=== PATIENT | male | born 1965 | race Caucasian/White ===

== ENCOUNTER 2023-12-28 06:16 | Observation (INO) ==
--- NOTE | 2023-12-01 12:05 | PAT Medication Instructions ---
Medication Instructions Date of Service December 01, 2023 Home Medications amlodipine 5 mg tablet (Norvasc) 5 mg PO HS losartan 50 mg tablet 50 mg PO HS rivaroxaban 20 mg tablet (Xarelto) 20 mg PO HS ergocalciferol (vitamin D2) 1,250 mcg (50,000 unit) capsule (Vitamin D2) 1,250 mcg PO UD omeprazole 20 mg capsule,delayed release 20 mg PO DAILY PRN Heartburn rosuvastatin 10 mg tablet 10 mg PO HS valacyclovir 1 gram tablet (Valtrex) 1,000 mg PO DAILY PRN Cold Sores ASK your prescriber and surgeon rivaroxaban 20 mg tablet (Xarelto) 20 mg PO HS (From anesthesia perspective, Xarelto/rivaroxaban needs to be stopped 72 hours before surgery. Please check if okay with doctor that prescribes this to you) DO NOT take the morning of surgery ergocalciferol (vitamin D2) 1,250 mcg (50,000 unit) capsule (Vitamin D2) 1,250 mcg PO UD Take morning of surgery With a small sip of water, OTHERWISE NOTHING TO EAT OR DRINK AFTER MIDNIGHT: omeprazole 20 mg capsule,delayed release 20 mg PO DAILY PRN Heartburn (if needed) valacyclovir 1 gram tablet (Valtrex) 1,000 mg PO DAILY PRN Cold Sores (if needed) Take evening before surgery amlodipine 5 mg tablet (Norvasc) 5 mg PO HS losartan 50 mg tablet 50 mg PO HS omeprazole 20 mg capsule,delayed release 20 mg PO DAILY PRN Heartburn (if needed) rosuvastatin 10 mg tablet 10 mg PO HS valacyclovir 1 gram tablet (Valtrex) 1,000 mg PO DAILY PRN Cold Sores (if needed) Other Notes If you have any questions please call us at [phone] or [phone] or [phone] or [phone]
--- NOTE | 2023-12-06 10:29 | Anesthesiology Consultation ---
Date of Service December 06, 2023 Assessment & Plan (1) Encounter for pre-operative examination: Plan - Outpatient joint assessment: Patient is currently scheduled for inpatient pathway. If re-evaluated and patient/surgeon requests outpatient pathway, patient is/is not acceptable candidate for outpatient joint program from anesthesia standpoint pending surgeon's office assessment of pt motivation/support/completion of same day joint program preop requirements. Chart Review Chart Review: Patient seen in Pre Admission Testing Teaching & Discussion Pre-Anesthesia Teaching/Discussion Notes: Instructed NPO after midnight before surgery, except medications with 15 cc of water. Medication instructions provided according to the PAT guidelines. History Surgery Operation Date: 12/28/23 11:45 Proposed Procedures p Right Total Knee Arthroplasty with Hardware Removal - Rupesh Worthy MD Height/Weight Height: 5 ft 11 in Weight: 108.862 kg Allergies Allergy/AdvReac Type Severity Reaction Status Date / Time No Known Allergies Allergy Verified 11/28/23 08:02 Medications Home Medications Medication Instructions Recorded Confirmed Last Taken amlodipine 5 mg tablet (Norvasc) 5 mg PO HS 04/23/20 11/28/23 07/06/22 losartan 50 mg tablet 50 mg PO HS 04/23/20 11/28/23 07/06/22 rivaroxaban 20 mg tablet (Xarelto) 20 mg PO HS 04/23/20 11/28/23 07/06/22 ergocalciferol (vitamin D2) 1,250 1,250 mcg PO UD 06/25/22 11/28/23 07/06/22 mcg (50,000 unit) capsule (Vitamin D2) omeprazole 20 mg capsule,delayed 20 mg PO DAILY PRN Heartburn 11/28/23 11/28/23 Unknown release rosuvastatin 10 mg tablet 10 mg PO HS 11/28/23 11/28/23 Unknown valacyclovir 1 gram tablet 1,000 mg PO DAILY PRN Cold Sores 11/28/23 11/28/23 Unknown (Valtrex) Past Medical History Medical History (Updated 12/06/23 @ 10:28 by Yulisa Iyer PA-C) Atrial fibrillation follows with Dr Willie Granados ([place], [place]) GERD (gastroesophageal reflux disease) History of COVID-19 09/2021>SYMPTOMS RESOLVED History of COVID-19 ~2021: vertigo for about 10 days. no current issues HTN (hypertension) Hx-TIA (transient ischemic attack) 10+ YEARS AGO Sleep apnea CPAP Patient denies h/o seizures, heart attack, heart failure, DM, blood clots/DVTs or blood transfusions. Past Family History Family History Other Colorectal cancer No family history of adverse response to anesthesia Past Surgical History Surgical History History of colonoscopy History of esophagogastroduodenoscopy (EGD) Hx of Achilles tendon repair LEFT Hx of cholecystectomy Hx of reconstruction of anterior cruciate ligament tear RT Hx of shoulder surgery RT S/P trigger finger release right trigger thumb [place] teeth removed Social History Smoking Status: Never smoker tobacco type: smokeless tobacco Do You Dip or Chew Tobacco: Yes (1 can/2 week (advised)) Hx Alcohol Use: Yes Alcohol type: beer and hard liquor alcohol intake frequency: a few times a week Hx Substance Use: No substance use type: does not use Review of Systems Patient denies chest pain, shortness of breath, dyspnea on exertion, fever, chills, cough, wheezing, or palpitations. Physical Exam Vital Signs Vitals BP P TEMP SP02 % on RA RESP Physical Patient resting comfortably in chair in no acute distress, alert and oriented, responding appropriately throughout visit Full cervical extension range of motion without pain TMD __ finger breadths Mallampati Score ___ Dentition: intact, denies chipped or loose teeth, caps/crowns, implants or bridges Lungs: normal respiratory effort. Good air movement, clear throughout to auscultation, no adventitious breath sounds Cardiac: regular rate and rhythm, no murmurs noted Carotid arteries: negative bruit bilat
--- NOTE | 2023-12-06 11:15 | Anesthesiology Consultation ---
Date of Service December 06, 2023 Assessment & Plan (1) Encounter for pre-operative examination: Chart Review Chart Review: Acceptable Risk for Surgery (pending cardio response regarding optimization for surgery ) and Patient seen in Pre Admission Testing - Please send optimization note to cardio regarding if patient is acceptable cardiac risk for procedure (Dr. Willie Valdes- [facility]) (please also send preop testing per patient request for continuity of care) - Please send preop testing to PCP (Dr. Ulises Villareal ([place], [place]) per patient request for continuity of care -Patient is NOT an ideal OPJ candidate (currently 23 hour obs) Per PAT appt on 12/06/23, no recent illness/disease exposures, illness related symptoms, or recent illness/disease positive tests. Will leave to surgeon's discretion if preop Covid testing needed Patient seen by cardiology 11/10/2023 = seen for cardiology evaluation. Patient has rare episodic palpitations which are nonexertional and nonsustained. CAD per calcium scoring CT scan of the chest. Patient would like to discontinue aspirin due to increased bruising. Will continue anticoagulation for A-fib. Due to CAD and carotid vascular diseaserecommend LDL lower than 70. Brief nonexertional sustained episodes of palpitations most likely from PACs and PVCs. Nonvalvular atrial fibrillationepisodic palpitations. [id number] score is 4. On Xarelto. Uncontrolled dyslipidemiapatient does not tolerate statin medicationswill try exercise and diet. Mild to moderate 50% bilateral ICA stenosis. Known valvular diseasepatient with recent echo. Controlled hypertension. Occasional class IV atypical angina described as squeezing pressure in substernal region. Sleep apnea with CPAP treatment. Echo and stress test from October 2023 reviewed. Right trigger finger release 07/07/2022 = done under [facility] Teaching & Discussion Pre-Anesthesia Teaching/Discussion Notes: Instructed NPO after midnight before surgery,except medications with 15 cc of water. Medication instructions provide d according to the PAT guidelines. History Surgery Operation Date: 12/28/23 11:45 Proposed Procedures p Right Total Knee Arthroplasty with Hardware Removal - Rupesh Worthy MD Height/Weight Height: 5 ft 11 in Weight: 108.8 kg Allergies Allergy/AdvReac Type Severity Reaction Status Date / Time No Known Allergies Allergy Verified 11/28/23 08:02 Medications Home Medications Medication Instructions Recorded Confirmed Last Taken amlodipine 5 mg tablet (Norvasc) 5 mg PO HS 04/23/20 11/28/23 07/06/22 losartan 50 mg tablet 50 mg PO HS 04/23/20 11/28/23 07/06/22 rivaroxaban 20 mg tablet (Xarelto) 20 mg PO HS 04/23/20 11/28/23 07/06/22 ergocalciferol (vitamin D2) 1,250 1,250 mcg PO UD 06/25/22 11/28/23 07/06/22 mcg (50,000 unit) capsule (Vitamin D2) omeprazole 20 mg capsule,delayed 20 mg PO DAILY PRN Heartburn 11/28/23 11/28/23 Unknown release rosuvastatin 10 mg tablet 10 mg PO HS 11/28/23 11/28/23 Unknown valacyclovir 1 gram tablet 1,000 mg PO DAILY PRN Cold Sores 11/28/23 11/28/23 Unknown (Valtrex) Past Medical History Medical History Atrial fibrillation follows with Dr Willie Granados ([place], [place]) on Xarelto stable at this time CAD (coronary artery disease) [place] to be mild to moderate in severity by calcium scoring and a CT scan of chest Agatston total calcium score was 167 consistent with mild to moderate atherosclerotic CAD Patient on anticoagulation for A-fib; baby aspirin DC'd by cardiology due to increased bruising Carotid artery disease <50% to bilateral ICAs per 10/2022 carotid doppler GERD (gastroesophageal reflux disease) well controlled and stable History of COVID-19 09/2021>SYMPTOMS RESOLVED ~2021: vertigo for about 10 days. no current issues HTN (hypertension) Hx-TIA (transient ischemic attack) 10+ YEARS AGO A fib diagnosed at that time Hyperlipidemia Per records Sleep apnea CPAP Exercise / Class Metabolic Activity II 4-5 Yardwork/Stairs/Walk up hill (one flight of stairs - no chest pain or SOB ) Past Family History Family History Other Colorectal cancer No family history of adverse response to anesthesia Past Surgical History Surgical History History of colonoscopy History of esophagogastroduodenoscopy (EGD) Hx of Achilles tendon repair LEFT Hx of cholecystectomy Hx of reconstruction of anterior cruciate ligament tear RT Hx of shoulder surgery RT S/P trigger finger release right trigger thumb [place] teeth removed Past Anesthesia History No Hx of Anesthesia Complications and No Family Hx of Anesthesia Complications History of PONV No Hx of PONV and Hx of Motion Sickness (mild ) Social History Smoking Status: Never smoker tobacco type: smokeless tobacco Do You Dip or Chew Tobacco: Yes (1 can/2 week (advised)) Hx Alcohol Use: Yes Alcohol type: beer and hard liquor alcohol intake frequency: a few times a week Hx Substance Use: No substance use type: does not use Review of Systems Patient denies chest pain, shortness of breath, dyspnea on exertion, cough, wheezing, palpitations. No hx of seizures, stroke, NM. No hx of blood clots or blood transfusions Physical Exam Vital Signs VITALS BP 130/85 P 51bpm TEMP 97.7 SP02 97% RESP 16 Constitutional no acute distress ENMT Mouth: no TMJ clicking Thyromental Distance: > or= 3.5 Finger Breadths (4.0) Mallampati Class: II Crowns to molars and side teeth Neck neck extension not limited Respiratory normal respiratory effort; no respiratory distress Auscultation: lungs clear to auscultation bilaterally; no wheezes Cardiovascular Rate/Rhythm: regular rate and regular rhythm Heart Sounds: no murmur Vessels: no carotid bruit Occ extra beat Musculoskeletal Spine: no pain with cervical ROM Extremities: extremities normal to inspection Psychiatric Orientation: alert Lab Results Anesthesia Preop Results Results Anesthesia Widget: WBC 4.22 K/ul (4.8-10.8) L 12/06/23 Hgb 14.3 g/dl (14.0-18.0) 12/06/23 Hct 41.7 % (42.0-52.0) L 12/06/23 Plt 171 K/uL (130-400) 12/06/23 Na 140 mmol/L (136-145) 12/06/23 K 4.2 mmol/L (3.5-5.1) 12/06/23 Cl 106 mmol/L (98-107) 12/06/23 CO2 27 mmol/L (21-32) 12/06/23 BUN 13 mg/dl (6-23) 12/06/23 Creat 0.89 mg/dl (0.6-1.4) 12/06/23 Glucose Level 79 mg/dl (70-99(Fasting)) 12/06/23 PT 12.6 Seconds (9.0-12.0) H 12/06/23 PTT 31 Seconds (21-31) 12/06/23 INR 1.2 (0.9-1.1) H 12/06/23 Blood Type A Positive 12/06/23 Antibody Screen NEGATIVE 12/06/23 Testing Laboratory Results Mildly elevated coags- on Xarelto Electrocardiogram Date: 12/06/23 SB with PACs at 55bpm Otherwise normal EKG per cardio Chest X-Ray Date: 12/06/23 Findings: + NAD Echocardiogram Date: 11/01/23 EF: 59% LV Function: normal Other Findings: + LVH (Mild/concentric) Well-preserved global and regional LV and RV systolic contractile function. Mild to moderate MR Mild TR. Mild OR Mild pulmonary arterial systolic hypertension of 40 mmHg No diagnostic evidence of significant chamber enlargement or intracavitary thrombus formation. When compared to prior study on 10/26/2022has been no significant change. Stress Test Date: 10/31/23 Type: nuclear No diagnostic evidence of stress-induced reversible myocardial ischemia Normal post-rest gated LV wall motion analysis. Normal wall thickening. LVEF 58% Maximal treadmill exercise stress test is clinically negative and e lectrocardiographically negative for myocardial ischemia. No PVCs Compared to the prior stress test from 10/23/2021, there are no progressive changes. Other Testing Cardiac CT 03/01/2023 = Agatston calcium score of 167, corresponding to the 70th percentile for age, gender and ethnicity, implying definite, at least moderate atherosclerotic plaque is present. There is a coronary disease is highly likely, significant narrowings are possible. Coronary artery calcium is present in the left main coronary artery, right coronary artery obtuse marginal. Carotid Doppler 10/26/2022 = right carotid artery diseasenonobstructive plaquing of the right common and external carotid. Mild narrowing of the right ICA with estimated obstruction less than 50%. Left carotid artery disease: Nonobstructive plaquing of the left common and external carotid. Mild narrowing of the left ICA with an estimated obstruction of less than 50%. Antegrade flow to bilateral vertebral arteries. Compared to carotid ultrasound done 10/23/2021, overall progressive change.
--- NOTE | 2023-12-24 08:19 | History & Physical Report ---
Date of Service December 24, 2023 Assessment & Plan (1) Right knee DJD: 58-year-old male with a history of 2 previous knee surgeries including an ACL reconstruction with bone patella tendon bone autograft with advanced right knee tricompartment DJD. He is failed conservative treatment. He like to proceed with knee replacement. Plan: Tonio taken to the operating do right total knee replacement. The risks Mente this procedure explained the patient clued but not limited to DVT PE infection neurological injury vascular bleeding palm pain limb range of motion this is fairly of symptoms incomplete relief of symptoms need for further surgery in future excetra. Patient understands and desires to proceed. Informed consent is obtained. Patient does have history of A-fib and he will have to hold his Xarelto 3 days preop. He will start him on a 24 hours postop. We may need to take some of the screws out and will be prepared for that. Will likely put some vancomycin and cement due to his history of multiple surgeries on the side. He is planning on being discharged home using [facility] home health program. (2) A-fib: History of Present Illness Chief Complaint: . Persistent, progressive right knee pain discomfort and swelling. Primary Care Provider: Bayron Villareal . Patient is a 58-year-old gentleman who now presents for surgical treatment of his right knee. Is got a long history of right knee problems dating back to the 90s. He initially had a knee scope and then had an ACL reconstruction and 89 in [place]. Over the past 20 years she has developed increased pain discomfort stiffness and swelling in his knee. He has been through extensive conservative treatment which provide very temporary relief only. Nothing that the provide any real significant long standing relief. Describes pain and swelling discomfort and instability. He limps more as the day goes on. He is ready to have his knee fixed. The patient does have history of atrial fibrillation on Xarelto. Allergies Allergy/AdvReac Type Severity Reaction Status Date / Time No Known Allergies Allergy Verified 11/28/23 08:02 Home Medications Medication Instructions Recorded Confirmed Type amlodipine 5 mg tablet (Norvasc) 5 mg PO HS 04/23/20 11/28/23 History losartan 50 mg tablet 50 mg PO HS 04/23/20 11/28/23 History rivaroxaban 20 mg tablet (Xarelto) 20 mg PO HS 04/23/20 11/28/23 History ergocalciferol (vitamin D2) 1,250 1,250 mcg PO UD 06/25/22 11/28/23 History mcg (50,000 unit) capsule (Vitamin D2) omeprazole 20 mg capsule,delayed 20 mg PO DAILY PRN Heartburn 11/28/23 11/28/23 History release rosuvastatin 10 mg tablet 10 mg PO HS 11/28/23 11/28/23 History valacyclovir 1 gram tablet 1,000 mg PO DAILY PRN Cold Sores 11/28/23 11/28/23 History (Valtrex) Past Med/Surg History Medical History CAD (coronary artery disease) [place] to be mild to moderate in severity by calcium scoring and a CT scan of chest Agatston total calcium score was 167 consistent with mild to moderate atherosclerotic CAD Patient on anticoagulation for A-fib; baby aspirin DC'd by cardiology due to increased bruising Carotid artery disease <50% to bilateral ICAs per 10/2022 carotid doppler Hyperlipidemia Per records GERD (gastroesophageal reflux disease) well controlled and stable Hx-TIA (transient ischemic attack) 10+ YEARS AGO A fib diagnosed at that time Atrial fibrillation follows with Dr Willie Granados ([place], [place]) on Xarelto stable at this time History of COVID-19 09/2021>SYMPTOMS RESOLVED ~2021: vertigo for about 10 days. no current issues Sleep apnea CPAP HTN (hypertension) Surgical History History of esophagogastroduodenoscopy (EGD) S/P trigger finger release right trigger thumb History of colonoscopy [place] teeth removed Hx of cholecystectomy Hx of Achilles tendon repair LEFT Hx of shoulder surgery RT Hx of reconstruction of anterior cruciate ligament tear RT Family History Other Colorectal cancer No family history of adverse response to anesthesia Social History Smoking Status: Never smoker Tobacco Type: Smokeless Tobacco (Dip or Chew) Second Hand Exposure: Yes; Do You Dip or Chew Tobacco: Yes (1 can/2 week (advised)); Tobacco Cessation Education Requested by Patient: No Hx Alcohol Use: Yes Alcohol type: beer and hard liquor Hx Substance Use: No Preferred Language: Divehi Communication Ability: Effective 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 Physical Exam . Physical examination was a pleasant healthy-appearing middle-age male. E xamination of the right knee reveal patient walks with a bit of a limp he is got well-healed incisions around the front of his knee. Fairly neutral slight varus alignment to his knee. Large knee effusion. Range of motion 0-1 25. Is got laxity Lala testing. No obvious pivot. No varus or valgus instability. No pain with hip motion. Constitutional WD/WN, vitals as above Neck trachea midline, no thyromegaly Respiratory normal respiratory effort, lungs clear to auscultation Cardiovascular RRR, no murmur, no edema Gastrointestinal (Abdomen) normal bowel sounds, soft, nontender, no hepatosplenomegaly Results & Data Results & Data Laboratory Results . Diagnostic Findings . X-rays of the right knee reviewed. Shows advanced right knee tricompartment DJD. Is got evidence of the previous ACL reconstruction with tibial and femoral interference screws. Osteophytes and chondrocalcinosis in all 3 compartments. PG Care Time/CCT Total # of Minutes Spent Total Time Spent with Patient: Total time spent is greater than 50% in coordination of care (as documented) at patient's floor/unit and/or counseling patient: Coding Level of Care Code None Diagnoses Right knee DJD M17.11 A-fib I48.91
[2023-12-28] MEDS ORDERED: BUPIVACAINE 0.25% PF 30 ML VIAL ONE (06:29)
[2023-12-28] MEDS ORDERED: EPINEPHrine INJ 1 MG/ML AMP ONE (06:29)
[2023-12-28] MEDS ORDERED: BUPIVACAINE 0.5 % 5 MG/1 ML PF 10ML VIAL ONE (06:29)
[2023-12-28] MEDS ORDERED: DEXAMETHASONE SOD INJ 4 MG/ML VIAL ONE (06:29)
--- NOTE | 2023-12-28 06:56 | History & Physical Bridge Note ---
Date of Service December 28, 2023 History & Physical Bridge Note I have examined the patient, reviewed the History & Physical and in the interval since the performance of the History & Physical I have noted the following changes of clinical significance: no changes noted
[2023-12-28] MEDS: LR 500ML BOLUS, THEN 15ML/HR IV SCH (07:24)
[2023-12-28] MEDS: LR 60ML/HR IV SCH (07:24)
[2023-12-28] MEDS: METOCLOPRAMIDE HCL 10 MG TABLET PO SCH (07:45)
[2023-12-28] MEDS: FAMOTIDINE 20 MG TAB PO SCH (07:45)
[2023-12-28] MEDS: CeleBREX 200 MG CAP PO SCH (07:45)
[2023-12-28] MEDS: ACETAMINOPHEN 500 MG TAB PO SCH ×2 (07:45→13:15)
[2023-12-28] MEDS: dexAMETHasone**PF** 10 MG/ML VIAL IV SCH (07:45)
[2023-12-28] MEDS ORDERED: MIDAZOLAM HCL 1 MG/ML 2ML VIAL ONE (08:23)
[2023-12-28] MEDS ORDERED: fentaNYL citrate PF 100 MCG/2 ML VIAL ONE (08:23)
[2023-12-28] MEDS ORDERED: fentaNYL citrate PF 100 MCG/2 ML VIAL IV PRN (08:25)
[2023-12-28] MEDS ORDERED: ePHEDrine sulfate 50 MG/ML AMP IV PRN (08:25)
[2023-12-28] MEDS ORDERED: ONDANSETRON INJ 2 MG/ML 2 ML VIAL IV PRN ×2 (08:25→12:59)
[2023-12-28] MEDS ORDERED: PROMETHAZINE HCL 6.25 MG in SODIUM CHLORIDE 0.9% 50 ML IV PRN (08:25)
[2023-12-28] MEDS ORDERED: ATROPINE SULFATE 0.1 MG/ML 10ML SYR IV PRN (08:25)
[2023-12-28] MEDS ORDERED: ONDANSETRON INJ 2 MG/ML 2 ML VIAL ONE (08:26)
[2023-12-28] MEDS ORDERED: GLYCOPYRROLATE 0.2 MG/ML VIAL ONE (08:26)
[2023-12-28] MEDS ORDERED: LIDOCAINE 2% 2 ML VIAL/AMP(20MG/ML) INFIL ONE (08:26)
[2023-12-28] MEDS ORDERED: PROPOFOL IV EMULSION 10 MG/ML 100 ML VIAL IV ONE (08:26)
[2023-12-28] MEDS: TRANEXAMIC ACID 1,000 MG **IV Intra-op IV SCH (09:11)
[2023-12-28] MEDS: Scopolamine 1 MG TDSY TD SCH (09:24)
[2023-12-28] MEDS: ceFAZolin 2000MG 2,000 MG/15 ML SYR IV SCH ×2 (09:32→17:01)
[2023-12-28] MEDS ORDERED: KETAMINE HCL 10MG/ML SYR ONE (09:50)
[2023-12-28] MEDS ORDERED: KETOROLAC 30 MG/ML VIAL ONE (10:00)
[2023-12-28] MEDS: ORTHO JOINT ANESTHETIC ONE (10:13)
[2023-12-28] MEDS: VANCOMYCIN HCL 1000MG/20ML VIAL ONE (10:13)
[2023-12-28] MEDS: ROPIV 0.5% 246mg, Ketorolac 30mg, EPINEPHrine 0.5mg in NSS INFIL SCH (10:44)
[2023-12-28] MEDS ORDERED: ePHEDrine sulfate 50 MG/5 ML SYR ONE (10:57)
--- NOTE | 2023-12-28 11:43 | Operative Report ---
PG Post Operative Report Pre & Post Diagnosis Operation Date: 12/28/23 09:05 Pre-Op Diagnosis: Right Knee Degenerative Joint Disease Post-Op Diagnosis: Right Knee Degenerative Joint Disease I identified the patient and participated in the time-out.: Yes Procedure Operation Date: 12/28/23 09:05 Actual Procedures p Right Total Knee Arthroplasty with Hardware Removal(Right) - Rupesh Worthy MD Surgeon Rupesh Worthy MD Clinical Support Nurse Regino Vo PA-C Estimated Blood Loss 50 Findings Consistent with Post-Op Diagnosis Operative findings were advanced right knee tricompartment DJD. Had grade 4 [id number] disease in all 3 compartments. Did tibiofemoral subluxation. He had significant scarring of the extensor mechanism from the previous surgery. Specimens Right knee sent for pathology. Anesthesia Type Spinal MAC Complications none Disposition Accompanied Patient To Recovery: No Indications Patient is a 58-year-old gentleman whose had a long history of right knee problems. He had a right knee arthroscopy done many years ago and then an ACL reconstruction back in 1995. Over the past 10 to 15 years he developed increased pain discomfort and recurrent swelling in his knee. X-rays show progressive knee arthritis. Failed all conservative measures. He elected to a total knee arthroplasty. Description of Procedure Operative implants consist of: 1 Biomet Vanguard size 62.5 right posterior stabilized femoral component. 2. Biomet size 75 tibial tray. 3. 10 mm post stabilized polyethylene plus insert. 4. 31 x 8 all poly patella. The patient was taken the operating, identified, and placed on the operating table in the supine position. All contact areas were appropriately padded. IV antibiotics tried by anesthesia team. A spinal anesthetic and adductor canal block had been applied in the holding area. Right Tetrick was then placed. The right lower extremities then prepped and draped in usual sterile fashion. The right leg was elevated and exsanguinated with use of an Esmarch and a turn was placed at 300 mmHg. An anterior approach to the right knee was then performed through a longitudinal incision centered over the patella. We used his previous incision and extended this both proximally and distally. Sharp dissection was got through subcutaneous tissue down to the extensor mechanism. A medial parapatellar arthrotomy incision was made. Some subperiosteal dissection was carried out medially. The fat pad was resected from Neath patella tendon. Lateral patellofemoral ligament was released. The patella was subluxated laterally. I did have to take quite a bit of scar tissue out from around the patella tendon to mobilize it. The knee was flexed. The osteophytes were taken. Off the distal femur. The ACL and PCL were released and the tibia subluxated anteriorly. The posterior lateral corner was extremely tight. We attempted exposing the tibia without further soft tissue dissection so I elected to cut the femur first. The distal femur examined the sharp drop with intramedullary canal was suction. Right 6 degree valgus cutting guide was placed. The distal femoral cutting block was pinned in place. Distal femoral cut was made to take an additional 5 mm of bone off distal femur as initial +3 cut did not take even down to the notch area. I then went back to the tibia. We exposed the tibia. I elected to use an IM guide. The tibial eminence was resected. The IM guide was placed. The proximal tibial cut was removed to remove about millimeter from the most deficient aspect medial tibial plateau. Tibia sized to a size 75. Attention drawn black to the femur. The femur was then sized. Femur sized to a size 72.5. The AP cutting block was pinned parallel to the epicondylar axis which was 4 degrees external rotation. The anterior cut, anterior chamfer, posterior cut, posterior chamfer cuts were made. The box cutting guide was placed in the just slight lateral and the box cut was made. Upon making the box cut we ran into the interference screw in the femur. I had to backed this out in order to complete the box cut. The screw was backed out without incident. The knee was flexed with the remnants of the medial and lateral menisci were excised. The osteophyte taken off the posterior aspect of the femur. A trial femoral component was placed. The tibial tray was then pinned in maximum external rotation and the drill and stem punch used to create defect in proximal tibia for the tibial tray. The knee was then trialed and the 10 mm insert fit most appropriately. It was just a little bit lax in flexion so I elected to use a PS plus insert. Attention drawn the patella. The patella was cleaned of all soft tissue. Patella thickness measured 22 mm in thickness was cut down to 14. I really did not want to cut it too thin as he had previous graft harvested from his patella. The patella was sized to a size 31. The lug holes were drilled for 31 patella. Lateral osteophytes removed. Patella button was placed. Knee was taken through range of motion patella tracked nicely with no thumbs test. Attention drawn to placing the permanent components. Nupathe all trial components were removed. Bone plug was placed into this femur limit blood loss. A double batch Palacos G cement was mixed. I did add an additional gram of vancomycin to the cement due to his history of several surgeries on this knee in the past. A Biomet Vanguard size 72.5 right posterior by femoral component, size 75 tibial tray, a 10 mm PS plus insert, and a 31 x 8 all poly patella then cemented in place. Knee was brought into full extension till cement hardened. Final cement check was then performed. The pericapsular tissues were injected with total of 100 cc of orthopedic joint mix. The patient did complain gram tranexamic acid. The tourniquet was then let down for final tourniquet time was 78 minutes. Hemostasis assured use electrocautery. Extensor Meclomen closed with combination 1 PDS suture #1 Vicryl suture in a [id number] fashion. Extensor Meclomen checked found to be intact and subcutaneous tissue then closed with 2 Dexon suture in buried interrupted fashion skin was closed skin maryellen. Leg was then cleaned and dried and a sterile dressing was Xeroform, 4 fours, sterile cast padding, Ankur bandage were applied. Patient then transferred to the recovery room in stable condition. Patient tolerated procedure well and there were no complications. Regino Vo, my physician laundry assistant, was present for the entire procedure. His assistance was essential and required for appropriate patient positioning, prepping and draping, surgical exposure, performing the technical details of the operation, placement the implants, closure of the wound, and placement of the sterile bandage. I attest to the content of the Intraoperative Record and any orders documented therein. Any exceptions are noted below.
--- NOTE | 2023-12-28 11:58 | Anesthesiology Progress Note ---
Date of Service December 28, 2023 Anesthesia Post Procedure Vital Signs Vital Signs: Temp Pulse Resp BP Pulse Ox O2 Del Method 12/28/23 07:02 36.7 C 57 L 20 129/88 97 Room Air Transfer of Care Handoff Completed per policy Notes Mental Status: alert / awake / arousable Patient Amnestic to Procedure: Yes Nausea / Vomiting: adequately controlled Pain: adequately controlled Airway Patency, RR, SpO2: stable & adequate BP & HR: stable & adequate Hydration State: stable & adequate Neuraxial Anesthesia: was administered and sensory block is resolving Anesthetic Complications: no major complications apparent and Pt Satisfied with anesthetic care
--- NOTE | 2023-12-28 12:33 | XRay Report ---
XR knee RT 1 or 2V routine CLINICAL HISTORY: Surgical Post Op TECHNIQUE: 2 views of the right knee were obtained. Comparison: Comparison is made to knee radiographs 11/21/2023 FINDINGS: Patient is status post total knee arthroplasty with expected postsurgical changes including soft tiss ue swelling and subcutaneous emphysema. No periarticular lucency or hardware fracture is seen. IMPRESSION: Expected postoperative appearance status post placement of total knee arthroplasty. ACT 112: Negative or not required by law. Electronically signed by: Peyman Mendoza M.D. 12/28/2023 12:32 PM
[2023-12-28] MEDS ORDERED: MAGNESIUM HYDROXIDE SUSP 30 ML UDC PO PRN (12:59)
[2023-12-28] MEDS ORDERED: PANTOprazole 40 MG TAB PO PRN (12:59)
[2023-12-28] MEDS ORDERED: bisacodyL 10 MG SUPP PR PRN (12:59)
[2023-12-28] MEDS ORDERED: ALUMINUM/MAGNESIUM SUSP 30 ML UDC PO PRN (12:59)
[2023-12-28] MEDS ORDERED: METOCLOPRAMIDE HCL INJ 5 MG/ML 2 ML VIAL IV PRN (12:59)
[2023-12-28] MEDS ORDERED: NALOXONE HCL 0.4 MG/1 ML VIAL/CARP IV PRN (12:59)
[2023-12-28] MEDS ORDERED: diphenhydrAMINE Capsule 25 MG CAP PO PRN (12:59)
[2023-12-28] MEDS: KETOROLAC 30 MG/ML VIAL IV SCH (13:15)
[2023-12-28] MEDS: SODIUM CHLORIDE 0.9% 1,000 ML IV SCH (13:17)
[2023-12-28] MEDS: oxyCODONE HCL IR 5 MG TAB (IMMEDIATE RELEASE) PO PRN (15:12)
[2023-12-28] MEDS: Scopolamine CHECK PATCH PLACEMENT SCH (15:13)
[2023-12-28] MEDS: ASCORBIC ACID 500 MG TAB PO SCH (16:10)
[2023-12-28] MEDS: HYDROmorphone INJ 0.5 MG/0.5 ML SYR IV PRN (16:36)
[2023-12-28] MEDS: TRANEXAMIC ACID / 0.7% NACL 1,000 MG/100 ML BAG IV SCH (17:01)
[2023-12-28] MEDS: ROSUVASTATIN CALCIUM 10 MG TAB PO SCH (20:57)
[2023-12-28] MEDS: SENNA 8.6 MG TAB PO SCH (20:57)
[2023-12-28] MEDS: DOCUSATE SODIUM 100 MG CAP PO SCH (20:57)
[2023-12-28] MEDS: LOSARTAN POTASSIUM 50 MG TAB PO SCH (20:58)
[2023-12-28] MEDS: amLODIPine BESYLATE 5 MG TAB PO SCH (20:58)
[2023-12-28] MEDS ORDERED: SENNA 8.6 MG TAB PO SCH (21:00)
[2023-12-29 07:36] LABS: Hematocrit (blood only) 33.6 % (42.0-52.0); Hemoglobin 11.5 g/dl (14.0-18.0); Mean Corpuscular Hemoglobin 30.4 pg (25.0-34.0); Mean Corpuscular Hgb Conc 34.2 g/dL (32.0-36.0); Mean Corpuscular Volume 88.9 fL (80.0-100.0); Mean Platelet Volume 10.1 fL (9.4-12.4); Platelet Count 158 K/uL (130-400); RDW Coefficient of Variation 12.7 % (11.5-14.5); RDW Standard Deviation 41.1 fL (36.4-46.3); Red Blood Count 3.78 M/uL (4.70-6.10); White Blood Count 13.01 K/ul (4.8-10.8)
[2023-12-29 08:04] LABS: BUN Creatinine Ratio 16.5 (10-20); Calcium 8.7 mg/dl (8.6-10.3); Creatinine Clr Calc Pharmacy 101.7 ml/min; Est GFR (African American) 97.9 ml/min; Est GFR (Non-African American) 84.5 ml/min; Potassium 4.7 mmol/L (3.5-5.1)
[2023-12-29] MEDS: TAMSULOSIN HCL 0.4 MG CAP PO SCH (08:47)
[2023-12-29] MEDS: MULTIVITAMIN TAB PO SCH (08:47)
[2023-12-29] MEDS: dexAMETHasone 10 MG in SYRINGE 0 ML IV SCH (08:48)
[2023-12-29] MEDS ORDERED: RIVAROXABAN 10 MG TABLET PO SCH (12:00)
--- NOTE | 2023-12-29 14:38 | Orthopedic Progress Note ---
Date of Service December 29, 2023 Assessment & Plan (1) Status post right knee replacement: Overall, he is doing quite well today with good pain control of the right knee. He will work with physical therapy later this morning to work on ambulation and range of motion exercises. He was started today on Xarelto for DVT prophylaxis. He can be discharged home later this morning pending physical therapy evaluation. He will follow-up in [address] Worthy for postoperative management. Subjective . Kenyon was seen and evaluated this morning resting comfortably in no apparent distress. He notes that his pain is well-controlled to the right knee. He has been up and out of bed with no significant issues. He has yet to be seen by physical therapy. He denies any other concerns today. Review of Systems All systems reviewed & are unremarkable except as noted in HPI & below. Physical Exam . On physical examination of the right knee, dressings are clean, dry, intact. His leg is out in full extension. He has active plantarflexion and dorsiflexion of the right ankle. +2 DP and PT pulses. Less than 2-second capillary refill. Normal sensation. Neurovascular intact. Results & Data Results & Data Laboratory Results . Diagnostic Findings . Postoperative x-rays of the right knee show prosthesis to be in anatomical alignment with no signs of fracture complication or loosening. PG Care Time/CCT Total # of Minutes Spent Total Time Spent with Patient: Total time spent is greater than 50% in coordination of care (as documented) at patient's floor/unit and/or counseling patient: Coding Level of Care Code 65291 Post Operative Follow-Up Diagnoses Status post right knee replacement Z96.651
--- NOTE | 2023-12-29 14:39 | Discharge Summary ---
Date of Service December 29, 2023 Admission HPI (Per Admitting) . Patient is a 58-year-old gentleman who now presents for surgical treatment of his right knee. Is got a long history of right knee problems dating back to the 90s. He initially had a knee scope and then had an ACL reconstruction and 96 in [place]. Over the past 20 years she has developed increased pain discomfort stiffness and swelling in his knee. He has been through extensive conservative treatment which provide very temporary relief only. Nothing that the provide any real significant long standing relief. Describes pain and swelling discomfort and instability. He limps more as the day goes on. He is ready to have his knee fixed. The patient does have history of atrial fibrillation on Xarelto. Admission Exam (Per Admitting) . Physical examination was a pleasant healthy-appearing middle-age male. Examination of the right knee reveal patient walks with a bit of a limp he is got well-healed incisions around the front of his knee. Fairly neutral slight varus alignment to his knee. Large knee effusion. Range of motion 0-1 25. Is got laxity Lala testing. No obvious pivot. No varus or valgus instability. No pain with hip motion. Principal Diagnosis Same as "Discharge Diagnosis" noted below under Discharge Instructions. Discharge Exam . On physical examination of the right knee, dressings are clean, dry, intact. His leg is out in full extension. He has active plantarflexion and dorsiflexion of the right ankle. +2 DP and PT pulses. Less than 2-second capillary refill. Normal sensation. Neurovascular intact. Discharge Data Procedures Performed Operation Date: 12/28/23 09:05 Actual Procedures p Right Total Knee Arthroplasty (Right) - Rupesh Worthy MD s with Hardware Removal(Right) - Rupesh Worthy MD Ordered Studies 12/28/23 05:00 US - OR guided needle placemen Routine Hospital Course (1) Status post right knee replacement: On December 28, 2023 Kenyon arrived at [facility] underwent a right total knee arthroplasty with hardware removal performed by Dr. Worthy with no complications. He had a spinal anesthetic. Postoperatively, he was transferred to the PACU for immediate postoperative management and then transferred to the general orthopedic floor in stable condition. His hospital course was uneventful. On postoperative day #1, his vital signs were stable and his pain was well-controlled. He was started on Xarelto for DVT prophylaxis. He participated well with physical therapy working on ambulation and range of motion exercises. He was then discharged home in stable condition. He will follow-up in [address] Worthy for postoperative management. PG Care Time/CCT Total # of Minutes Spent Total Time Spent with Patient: Total time spent is greater than 50% in coordination of care (as documented) at patient's floor/unit and/or counseling patient: Discharge Plan Discharge Items Patient Disposition: Home - Home Health Services Reason For Visit: Right Knee Degenerative Joint Disease Discharge Diagnosis: Right Knee Replacement Activity: Per Instructions section Non-emergency contact: Surgeon Call non-emergency contact if: you have any medication questions Follow-up/Referrals: Bayron Villareal M.D. [Primary Care Provider] - Diet: Regular Addtl Attending Provider Instructions: ACTIVITY RECOMMENDATIONS: Physical Therapy: * You will go to physical therapy three times each week for four to six weeks after your surgery in order to regain your knee range of motion and to retrain your knee to work properly. * It is just as important to make sure you are getting your knee perfectly straight as it is to regain your knee bend. * Taking a pain pill an hour before therapy can help you have a more productive and comfortable therapy session. Home Exercise: * You were shown a series of exercises (heel props, heel slides, etc.) in the hospital. Do these exercises three to four times each day including the exercises you were shown in physical therapy. Walking: * Get up and walk several times each day. For the first four weeks, try not to stand or walk for more than one hour at a time. If you do stand or walk for more than one hour, you will not hurt anything, but your knee and leg will likely swell. * As you feel comfortable, you may change from the walker or crutches to a cane and then to independent walking. MEDICATIONS: New Medicine: * You will likely be taking one or more of these medications: 1. Oxycodone - A quick and shorter-acting pain medication. Take one to two tablets every six hours to lessen your pain. 2. Xarelto - Thins your blood to lessen the chance of forming a blood clot. * The most common side effects of pain medicine and iron are nausea and constipation. If nausea or constipation is too much of a problem or if you have any questions about your new medicines or doses, call [facility] at . We will try to help you manage these issues. "VERY IMPORTANT TO READ AND REVIEW" Pain: * The immediate post-operative period after knee replacement surgery is often quite painful. * You are given a prescription for pain medicine. You should take it, as directed, when you need it, especially before physical therapy and before going to bed. Pain that interferes with sleep is very common and can last several months. * You will likely need pain medicine for the first four to six weeks. It will not stop all of the pain. The pain will lessen and as you feel better, you may change to milder pain medicine such as Tylenol. * The most common side effects of pain medicine are nausea and constipation, so don't take more than you need. SPECIAL CARE INSTRUCTIONS: TEDs/Elastic Stockings: * The white elastic stockings help limit swelling and prevent blood clots from forming in your legs. The more you wear them, the more they work. * Wear them for six weeks after knee replacement surgery and four weeks after partial knee replacement. Incision Site Care: * Remove dressing postoperative day 2 and then shower. Keep direct shower pressure off the incision site. * After showering, cover maryellen with dry gauze and change daily or more frequently if the dressing is getting saturated with drainage. * Use the GAMALIEL stockings to hold dressing in place. DO NOT apply tape on the skin. * May completely stop using bandage if wound is dry and no drainage * Maryellen are removed between 2 and 3 weeks post-op. If your follow-up appointment is made before 2 weeks, please have your appointment re- scheduled. It is too early to remove the maryellen. Prevention of Infection: * Take antibiotics one hour before any dental cleaning, dental work, urological procedure, gastrointestinal procedure or any invasive surgery in order to prevent your new joint from getting infected. * You may get the antibiotics from the doctor performing the procedure or you may call our office at [phone] before and we will call in a prescription to the pharmacy of your choice. Things to Watch For: * Drainage from the incision site that occurs more than one week after your surgery. * Severely increased knee/leg pain or swelling. * Increased redness at the incision site. * Fever above 102 degrees Fahrenheit. * Unusual chest pain or shortness of breath. * Unusual pain or burning with urination. Call [facility] at [phone] with any of the above problems or if you have any questions about your medicines or recovery. FOLLOW UP VISIT: Make an appointment to see your doctor for approximately two weeks after surgery for a progress check and staple removal by calling the office at [phone]. Pending Studies at Discharge: No Stand-Alone Forms: My [facility], Smoking Cessation Medications and DC Order Prescriptions: Continued oxycodone 5 mg tablet 5 - 10 mg PO Q6 PRN (Reason: pain) Qty: 40 0RF Rx Instructions: Take as needed for pain ondansetron 4 mg tablet,disintegrating 4 mg PO Q8 PRN (Reason: nausea) Qty: 20 1RF Rx Instructions: Take as needed for nausea sennosides [Senokot] 8.6 mg tablet 8.6 mg PO BID 14 Days Qty: 28 0RF Rx Instructions: Take two times a day to prevent/treat constipation acetaminophen [Tylenol Extra Strength] 500 mg tablet 1,000 mg PO TID 30 Days Qty: 180 0RF Rx Instructions: Take 3 times per day to lessen pain. tamsulosin [Flomax] 0.4 mg capsule 0.4 mg PO DAILY Qty: 7 0RF Rx Instructions: Begin night BEFORE surgery to prevent urinary retention cefadroxil 500 mg capsule 500 mg PO BID 7 Days Qty: 14 0RF Rx Instructions: Take 1 cap twice a day to prevent infection Xarelto 20 mg tablet 20 mg PO HS amlodipine [Norvasc] 5 mg tablet 5 mg PO HS losartan 50 mg tablet 50 mg PO HS ergocalciferol (vitamin D2) [Vitamin D2] 1,250 mcg (50,000 unit) Capsule 1,250 mcg PO UD Patient Comments: EVERY 2 WEEKS omeprazole 20 mg Capsule,Delayed Release(Dr/Ec) 20 mg PO DAILY PRN (Reason: Heartburn) valacyclovir [Valtrex] 1 gram Tablet 1,000 mg PO DAILY PRN (Reason: Cold Sores) rosuvastatin 10 mg Tablet 10 mg PO HS Admission Data Admit Date/Time: 12/28/23 11:34 Attending Provider: Rupesh Worthy Admit Provider: Deacon,Ruepsh S. Primary Care Provider: Bayron Villareal Other Providers: [facility],Home Health Other Interventions: Discharge Summary Assessment (RN) Last Done: 12/29/23 10:19
[2024-01-07] MEDS ORDERED: ERGOCALCIFEROL 1250 MCG (50,000 UNITS) CAP PO SCH (09:00)
== END 2023-12-29 11:23 | disposition home health service (06) ==
LOC: ASU 06:16 → 3E 06:16
DX: L90.5 Scar conditions and fibrosis of skin; M65.9 Synovitis and tenosynovitis, unspecified; M25.761 Osteophyte, right knee; K21.9 Gastro-esophageal reflux disease without esophagitis; Z79.899 Other long term (current) drug therapy; I10 Essential (primary) hypertension; G47.33 Obstructive sleep apnea (adult) (pediatric); M17.11 Unilateral primary osteoarthritis, right knee; Z79.01 Long term (current) use of anticoagulants; I48.91 Unspecified atrial fibrillation